=== PATIENT | female | born 1980 | race Caucasian/White ===

== ENCOUNTER 2018-01-05 08:44 | Emergency (ER) | payer MEDICARE, OTHER ==
[2018-01-05] MEDS: METHYLPREDNISOLONE 125 MG INJ IM (09:42)
[2018-01-05] MEDS: ALBUTEROL 0.083% (NEB) 2.5 MG/3 ML AMP NEB (09:51)
[2018-01-05] MEDS: IPRATROPIUM (NEB) 0.5 MG/2.5 ML AMP NEB (09:51)
== END 2018-01-05 10:55 | disposition home or self-care (01) ==
LOC: FTE 08:44
DX: J20.9 Acute bronchitis, unspecified (principal); J45.901 Unspecified asthma with (acute) exacerbation; J44.9 Chronic obstructive pulmonary disease, unspecified; F17.210 Nicotine dependence, cigarettes, uncomplicated
CPT/HCPCS: 71045; 94664; 96372; 99284-25